=== PATIENT | male | born 1960 | race Caucasian/White ===

== ENCOUNTER 2018-05-06 14:47 | Emergency (ER) | payer OTHER ==
[~2018-05-06] VITALS: Ht 172.7 cm; Wt 106.6 kg
[2018-05-06 15:00] VITALS: BP_SYST 119
[2018-05-06] MEDS ORDERED: DIPH-TET-PERTUS Vaccine 0.5 ML VIAL (ADACEL) I.M. ONE (15:30)
[2018-05-06] MEDS ORDERED: LIDOCAINE 1.5% MPF 150 MG/10 ML AMP INJ ONE (15:30)
[2018-05-06] MEDS ORDERED: BACITRACIN 1 GM OINT TP ONE (16:00)
[2018-05-06 16:47] VITALS: BP_SYST 132
== END 2018-05-06 16:47 | disposition home or self-care (01) ==
LOC: SED 14:47
DX: S91.111A Laceration without foreign body of right great toe without damage to nail, initial encounter (principal); I10 Essential (primary) hypertension; Z85.47 Personal history of malignant neoplasm of testis; Z87.442 Personal history of urinary calculi; Z88.0 Allergy status to penicillin; W26.8XXA Contact with other sharp object(s), not elsewhere classified, initial encounter; Y93.89 Activity, other specified; Y92.89 Other specified places as the place of occurrence of the external cause; Y99.8 Other external cause status
CPT/HCPCS: 90715; 99283